=== PATIENT | male | born 1970 | race Caucasian/White ===

== ENCOUNTER → 2016-11-27 | Outpatient (CLI) | payer BC | LOC: RAD 10:35 | PROVIDERS: ATTEND Nurse Practitioner Family | DX: M54.2 Cervicalgia (principal) ==

== ENCOUNTER 2018-01-12 08:35 | Outpatient (RCR) | payer BC | END 2018-02-04 11:50 | disposition home or self-care (01) | PROVIDERS: ATTEND Nurse Practitioner Family | DX: M54.5 Low back pain (principal); M54.2 Cervicalgia ==

== ENCOUNTER → 2020-07-05 | Outpatient (CLI) | payer BC | LOC: LABNPT 05:38 | PROVIDERS: ATTEND Family Medicine | DX: J02.9 Acute pharyngitis, unspecified (principal); R51 Headache; Z20.828 Contact with and (suspected) exposure to other viral communicable diseases | CPT/HCPCS: 87635 ==

== ENCOUNTER → 2020-09-05 | Outpatient (CLI) | payer BC ==
[~2020-09-05] MED LIST: BARIUM for suspension 96% w/w (Vanilla Silq Medium Density) PO ONE; BARIUM for suspension 98% w/w (Vanilla Silq High Density) PO ONE
--- NOTE | 2020-09-05 10:34 | Diagnostic Imaging Report ---
INDICATION: Pre-gastric sleeve surgery. TECHNIQUE: The patient ingested effervescent crystals as well as thin and thick barium and imaging over the esophagus, stomach, and proximal small bowel was performed. A total of 41 seconds of fluoroscopic time was utilized. FINDINGS: Preliminary radiographs of the abdomen are unremarkable. The esophagus has a smooth contour. No mass or stricture is identified. No gastroesophageal reflux or hiatal hernia was demonstrated. The stomach is normal in configuration. There is prompt emptying into the small bowel. The duodenal bulb is without deformity. IMPRESSION: Unremarkable upper GI. Dictated by: Dictated on workstation # [id number]
== END ==
LOC: RAD 09:00
PROVIDERS: ATTEND Surgery
DX: K21.9 Gastro-esophageal reflux disease without esophagitis (principal)
CPT/HCPCS: 74246

== ENCOUNTER → 2020-09-18 | Outpatient (CLI) | payer BC ==
[~2020-09-18] VITALS: Ht 185 cm; Wt 159.0 kg
[~2020-09-18] MED LIST changes: -BARIUM for suspension 96% w/w (Vanilla Silq Medium Density) PO ONE; -BARIUM for suspension 98% w/w (Vanilla Silq High Density) PO ONE; +CATHETER FLUSH 10 ML SYR IV PRN; +REGADENOSON 0.4 MG/5 ML SYR (LEXISCAN) IV ONE
[2020-09-18 09:15] VITALS: BP 140/77
--- NOTE | 2020-09-18 15:13 | STRESS TEST ---
DATE OF SERVICE: 09/18/2020 RESTING AND POST REGADENOSON TECHNETIUM-99M TETROFOSMIN SPECT CT IMAGING ORDERING PHYSICIAN: Dr. Powell. CLINICAL DIAGNOSIS: Shortness of breath. Baseline images were carried out after injection of 10.62 mCi of technetium-99m Tetrofosmin. This was followed by 0.4 mg Regadenoson and 29.6 mCi of technetium-99m Tetrofosmin for stress imaging. The electrocardiogram showed sinus rhythm at baseline. It did not change significantly with Regadenoson infusion. Review of images at rest and following stress shows a somewhat patchy tracer uptake, but there is no distinct evidence of any significant ischemia. Gated images show normal global left ventricular systolic function with normal regional wall motion. Left ventricular ejection fraction is calculated to be 56%. Left ventricular end diastolic volume is 122 mL, indicating mild to moderate cardiomegaly. TID was absent (1.01). CONCLUSIONS: 1. No evidence of any significant myocardial ischemia or infarction on this study. 2. Mild to moderate cardiomegaly. 3. Normal global left ventricular systolic function with a calculated ejection fraction of 56%. Job ID: [id number] DocumentID: [id number] Dictated Date: 09/18/2020 14:15:16 [employer] Specialist Date: 09/18/2020 15:13:14 Dictated By: ALIYA POWELL MD, MA, FACP, FACC,
== END ==
LOC: CARD 07:20
PROVIDERS: ATTEND Internal Medicine Cardiovascular Disease
DX: I51.7 Cardiomegaly (principal)
CPT/HCPCS: 78452; 93017; A9502

== ENCOUNTER → 2020-09-20 | Outpatient (CLI) | payer BC | LOC: CARD 08:05 | PROVIDERS: ATTEND Internal Medicine Cardiovascular Disease | DX: I51.7 Cardiomegaly (principal); R06.09 Other forms of dyspnea | CPT/HCPCS: 93306 ==

== ENCOUNTER → 2020-09-24 | Outpatient (CLI) | payer BC, OTHER | LOC: LABNPT 11:25 | PROVIDERS: ATTEND Surgery | DX: Z20.828 Contact with and (suspected) exposure to other viral communicable diseases (principal) | CPT/HCPCS: 87635 ==

== ENCOUNTER → 2020-11-01 | Outpatient (CLI) | payer BC, OTHER ==
[~2020-11-01] VITALS: Ht 185 cm; Wt 141.0 kg
[~2020-11-01] MED LIST changes: +BAMLANIVIMAB 700 MG in NS 200 ML IV ONE; -CATHETER FLUSH 10 ML SYR IV PRN; +EPINEPHrine INJECTION 1 MG/ML AMP IM PRN; -REGADENOSON 0.4 MG/5 ML SYR (LEXISCAN) IV ONE; +diphenhydrAMINE 50 MG/ML INJ (BENADRYL) IV PRN
[2020-11-01 08:04] VITALS: BP 136/109
[2020-11-01 10:22] VITALS: BP 135/89
== END ==
LOC: INFUSION 08:05
PROVIDERS: ATTEND Nurse Practitioner Family
DX: U07.1 COVID-19 (principal); I10 Essential (primary) hypertension

== ENCOUNTER → 2022-11-21 | Outpatient (CLI) | payer BC ==
--- NOTE | 2022-11-21 13:04 | Diagnostic Imaging Report ---
PROCEDURE: MRI lumbar spine. TECHNIQUE: Multiplanar, multisequence MRI of the lumbar spine was performed without contrast. INDICATION: Low back pain COMPARISON: Lumbar spine MRI of 11/05/2015 FINDINGS: Lumbar spine is normal alignment. No fracture or concerning marrow replacing process. No sacral insufficiency fracture. Distal thoracic cord is normal in appearance. No clumping or enlargement of the intrathecal nerve roots. No extradural fluid collection. Psoas major and paravertebral muscles are normal. No concerning abnormality in the retroperitoneum. T11-T12: Unchanged left paracentral disc protrusion causing mild narrowing of the lateral recess and mild neuroforaminal stenosis but no mass effect on the cord or exiting nerve roots. L1-L2: No spinal canal or neuroforaminal stenosis. L2-L3: No spinal canal or neuroforaminal stenosis. L3-L4: No spinal canal or neuroforaminal stenosis. L4-L5: Central disc extrusion has decreased in size and now mildly narrows the lateral recesses but does not contact the L5 nerve roots. Moderate to severe right neuroforaminal stenosis has progressed and there is potential abutment of the right L4 nerve root in the far lateral space. L5-S1: Central disc protrusion has enlarged and has an annular tear. This causes minimal flattening of the ventral thecal sac but does not contact the nerve roots in the lateral recess. There is no significant neuroforaminal stenosis. IMPRESSION: 1. Mixed changes at the L4-L5 level where there is now moderate to severe right neuroforaminal stenosis and potential contact of the exiting L4 nerve root in the far lateral space. 2. The disc extrusion at L4-L5 has decreased in size and no longer contacts the left L5 nerve within the thecal sac. Dictated by: Dictated on workstation # [id number]
== END ==
LOC: RAD 07:44
PROVIDERS: ATTEND Nurse Practitioner Family
DX: M48.061 Spinal stenosis, lumbar region without neurogenic claudication (principal); M51.26 Other intervertebral disc displacement, lumbar region
CPT/HCPCS: 72148